=== PATIENT | female | born 1995 | race Caucasian/White ===

== ENCOUNTER 2019-11-17 16:56 | Emergency (ER) | payer OTHER ==
[~2019-11-17] VITALS: Ht 165.1 cm; Wt 61.2 kg
[2019-11-17] MEDS ORDERED: FLEXERIL PO (17:41)
[2019-11-17] MEDS ORDERED: IBUPROFEN 600600 M1 PO (17:41)
[2019-11-17 19:58] LABS: URINE BLOOD 3+ (Negative); URINE CLARITY SL CLOUDY; URINE COLOR YELLOW; URINE GLUCOSE-RANDOM NEGATIVE (Negative); URINE KETONES 2+ (Negative); URINE LEUKOCYTES-REFLEX NEGATIVE (Negative); URINE NITRITE-REFLEX NEGATIVE (Negative); URINE PROTEIN 1+ (Negative); URINE SPECIFIC GRAVITY 1.025 (1.005-1.030); URINE UROBILINOGEN 0.2 E.U./dl (0.2-1.0)
[2019-11-17 20:00] LABS: URINE BILIRUBIN 1+ (Negative)
[2019-11-17 20:01] LABS: ICTOTEST (BILI CONFIRMATORY) Negative (Negative)
[2019-11-17 20:13] LABS: SQUAMOUS >10 Many /LPF (0-3); URINE RBC 0-2 Rare /HPF (0-2); URINE WBC-REFLEX 0-5 Rare /HPF (0-5)
[2019-11-17 20:14] LABS: BACTERIA-REFLEX >30 Many /HPF (None Seen); CASTS None Seen /LPF (None Seen); CRYSTALS None Seen /LPF (None Seen); MUCUS >6 Heavy strn/LPF (None Seen)
[2019-11-17 20:16] VITALS: BP 105/65
== END 2019-11-17 20:17 ==
LOC: M.ERS 16:56
PROVIDERS: Nurse Practitioner Family
DX: M54.5 Low back pain (principal); J45.909 Unspecified asthma, uncomplicated; K59.00 Constipation, unspecified; F41.9 Anxiety disorder, unspecified; F17.210 Nicotine dependence, cigarettes, uncomplicated; Z90.49 Acquired absence of other specified parts of digestive tract; Z91.040 Latex allergy status

== ENCOUNTER 2020-02-10 19:22 | Emergency (ER) | payer OTHER ==
[~2020-02-10] VITALS: Ht 165.1 cm; Wt 61.2 kg
[~2020-02-10 19:22] MED LIST: FLEXERIL PO; IBUPROFEN 600600 M1 PO
[2020-02-10 20:37] LABS: INFLUENZA A ANTIGEN Negative (Negative); INFLUENZA B ANTIGEN Negative (Negative)
[2020-02-10] MEDS ORDERED: VISTARIL 25 MG25 M1 PO (20:55)
[2020-02-10 21:29] VITALS: BP 124/54
== END 2020-02-10 21:31 ==
LOC: M.ERS 19:22
PROVIDERS: Physician Assistant
DX: J02.9 Acute pharyngitis, unspecified (principal); M79.10 Myalgia, unspecified site; F41.9 Anxiety disorder, unspecified; J45.909 Unspecified asthma, uncomplicated; Z90.49 Acquired absence of other specified parts of digestive tract

== ENCOUNTER 2021-04-15 15:28 | Emergency (ER) | payer OTHER ==
[~2021-04-15] VITALS: Ht 165.1 cm; Wt 59.0 kg
[~2021-04-15 15:28] MED LIST changes: +VISTARIL 25 MG25 M1 PO
[2021-04-15] MEDS ORDERED: MEDROLDOSEPACK PO (16:04)
[2021-04-15] MEDS ORDERED: VISTARIL 25 MG25 M1 PO (16:04)
[2021-04-15] MEDS ORDERED: LIDODERM1 EACH TRANSDERM (16:04)
[2021-04-15] MEDS ORDERED: FLEXERIL PO (16:04)
[2021-04-15 16:13] VITALS: BP 125/74
== END 2021-04-15 16:14 | disposition home or self-care (01) ==
LOC: M.ERS 15:28
DX: M54.6 Pain in thoracic spine (principal); M54.5 Low back pain; G89.29 Other chronic pain; F41.9 Anxiety disorder, unspecified; M41.9 Scoliosis, unspecified; J45.909 Unspecified asthma, uncomplicated; Z90.49 Acquired absence of other specified parts of digestive tract; Z91.040 Latex allergy status

== ENCOUNTER 2021-05-03 12:03 | Emergency (ER) | payer OTHER ==
[~2021-05-03] VITALS: Ht 165.1 cm; Wt 59.0 kg
[~2021-05-03 12:03] MED LIST changes: +LIDODERM1 EACH TRANSDERM; +MEDROLDOSEPACK PO
[2021-05-03] MEDS ORDERED: DOXYCYCLINE 10100 MG PO (12:23)
[2021-05-03] MEDS ORDERED: CENTANY30 GM TOP (12:23)
[2021-05-03 12:33] VITALS: BP 123/79
[2021-05-03] MEDS ORDERED: VISTARIL 25 MG25 M1 PO (13:01)
== END 2021-05-03 12:37 | disposition home or self-care (01) ==
LOC: M.ERS 12:03
DX: L02.212 Cutaneous abscess of back [any part, except buttock and flank] (principal); F41.9 Anxiety disorder, unspecified; J45.909 Unspecified asthma, uncomplicated; Z91.040 Latex allergy status

== ENCOUNTER 2021-11-02 13:42 | Emergency (ER) | payer OTHER ==
[~2021-11-02] VITALS: Ht 165.1 cm; Wt 61.2 kg
[~2021-11-02 13:42] MED LIST changes: +CENTANY30 GM TOP; +DOXYCYCLINE 10100 MG PO
[2021-11-02] MEDS ORDERED: NAPROSYN500 MG PO (14:57)
[2021-11-02] MEDS ORDERED: FLEXERIL PO (14:57)
[2021-11-02 15:08] VITALS: BP 135/64
[2021-11-02] MEDS ORDERED: LIDODERM1 EACH TRANSDERM (15:08)
== END 2021-11-02 15:09 | disposition home or self-care (01) ==
LOC: M.ERS 13:42
DX: M54.59 Other low back pain (principal); F41.9 Anxiety disorder, unspecified; J45.909 Unspecified asthma, uncomplicated; F17.210 Nicotine dependence, cigarettes, uncomplicated; Z90.49 Acquired absence of other specified parts of digestive tract; Z91.040 Latex allergy status